=== PATIENT | female | born 1995 | race Caucasian/White ===

== ENCOUNTER 2023-09-22 09:29 | Day surgery (SDC) | payer OTHER, SELFPAY ==
[2023-09-20 07:42] VITALS: BMI 25.0
--- NOTE | 2023-09-22 10:50 | P.HP_ITS ---
History of Present Illness History of Present Illness Date Patient Seen: 09/22/23 Time Patient Seen: 11:30 Chief complaint: SDC Narrative: 34-year-old female last seen in clinic 08/02/2023 with known left nasal airway obstruction 2 to 3+ septal deviation, incompletely managed with medical therapy, presents for septoplasty and turbinate reduction as an outpatient. No interval health changes since last seen, no recent cough cold or fever. [facility] Medical History Nasal turbinate hypertrophy Anemia Migraines Deviated nasal septum Surgical History No history of previous surgery Social History Smoking Status: Never smoker Meds Home Medications and Allergies Home Medications Medication Instructions Recorded Confirmed Type No Known Home Medications 09/20/23 09/20/23 History Allergies Allergy/AdvReac Type Severity Reaction Status Date / Time No Known Drug Allergies Allergy Verified 09/20/23 07:50 Review of Systems Review of Systems Narrative: Negative except as listed in the HPI Exam Narrative Exam Narrative: Well-developed well-nourished, heart regular rate and rhythm without murmur, lungs clear to auscultation bilaterally Assessment & Plan Assessment & Plan narrative: Assessment: Nasal airway obstruction, septal deviation, inferior turbinate hypertrophy Plan: Following discussion of the material risks benefits complications and alternatives, the patient elected to proceed.
--- NOTE | 2023-09-22 10:50 | PM.PREOP ---
Pre-operative Note Interval Note History & Physical reviewed/Exam performed by Physician: Yes Changes to H&P: No
--- NOTE | 2023-09-22 10:53 | PM.OP.1 ---
Operative Date/Time/Diagnoses Date of procedure: 09/22/23 Time of procedure: 13:05 Pre-op diagnosis: Nasal airway obstruction, septal deviation, inferior turbinate hypertrophy Procedure & Clinicians Procedure: 1. Septoplasty 2. Bilateral inferior turbinate reduction via intramural cautery Same procedure as scheduled: Yes Indications: 28 Year old with the above diagnoses incompletely managed with medical therapy presents for the above procedure. Following discussion of the material risks benefits complications and alternatives, the patient elected to proceed. Surgeon: Charan López Click Yes if Unassisted: Yes Anesthesia Type: General and Local Operative Notes Findings: 2 to 3+ left anterior primarily superior septal deviation, [id number]-left inferior turbinate hypertrophy. Small LEFT high mid to posterior flap perf, RIGHT intact. Estimated Blood Loss (mL): 20 Procedure in detail: Following identification and confirmation of consent as well as preoperative Afrin nasal spray, the patient was brought to the operating room suite and placed in the supine position. General endotracheal anesthesia was administered. I infiltrated the septum widely bilaterally with 1% lidocaine 1 100,000 epinephrine followed by temporary packing with cotton with Afrin and 4% lidocaine. Following sterile prep and drape, the packing was removed and I performed a right marium-transfixion incision, elevated the right mucoperichondrial and mucoperiosteal flap. I disarticulated near the bony/cartilaginous junction and elevated the left mucoperiosteal flap. Deviated portions of the perpendicular plate of the ethmoid and vomer were resected. The residual quadrilateral cartilage was further straightened by trimming it inferiorly as well as reducing the maxillary crest. A 2 mm strip of cartilage paralleling the residual 1 cm dorsal and caudal strut was resected to further straighten the quadrilateral cartilage. The hemitransfixion incision was closed with interrupted 5 0 chromic followed by a running 4 0 plain gut mattress suture to reapproximate the septal flaps. At case completion, 20/1000th of an inch silastic splints were placed bilaterally, sutured anteriorly with a single 4 0 nylon. The head of each inferior turbinate had been previously infiltrated with additional local anesthetic and a 25 gauge spinal needle was used to impale the length of the turbinate, with cautery on a setting of 15 activated on slow withdrawal over 2 passes. The turbinates were then outfractured. The procedure completed, sponge and needle counts were correct and the patient was extubated in the operating room and taken to recovery room in stable condition without known complication. Complications: none Post-operative Condition: stable Disposition: same day surgery Plan for aftercare: Nasal saline every hour while awake, begin irrigations t.i.d. tomorrow if desired. Polysporin to the nostrils at all times, Tylenol alternating with Advil for pain control, oxycodone for breakthrough pain. Elevate head of bed, no nose blowing, no straining for 2 weeks. Ice directly under the nose on the upper lip has tolerated 24-48 hours at a minimum. Follow-up in 1 week for nasal splint removal.
[2023-09-22] MEDS: SCOPOLAMINE 1 PATCH TOP (11:09)
[2023-09-22] MEDS: LACTATED RINGERS 1,000 ML 42 ML IV (11:10)
[2023-09-22] MEDS: ACETAMINOPHEN 325 MG TABLET 975 MG PO (11:10)
[2023-09-22] MEDS: OXYMETAZOLINE NASAL SPRAY 30 ML 2 SPRAYS NASAL (11:11)
[2023-09-22 11:29] VITALS: BMI 25.0
[2023-09-22 11:33] VITALS: BP 109/71; PULSE 65; RESP 18; TEMP 36.8; O2SAT 100
[2023-09-22] MEDS: LIDOCAINE 1% W/EPI 20 ML INJ (12:10)
[2023-09-22] MEDS: LIDOCAINE 4% SOLN 50 ML 20 ML TOP (12:10)
--- NOTE | 2023-09-22 12:19 | SUR.OPER ---
Supine on padded OR bed, head on pillow, arms padded and tucked at sides, legs uncrossed, safety belt at thigh, tape over blanket over lower legs .
[2023-09-22] MEDS: BACITRACIN OINT 0.9 GM PCKT 1 APPLIC TOP (12:23)
[2023-09-22 13:17] VITALS: BP 121/66; PULSE 64; RESP 16; TEMP 36.2; O2SAT 98
[2023-09-22 13:22] VITALS: BP 130/73; PULSE 88; RESP 16; O2SAT 98
[2023-09-22 13:27] VITALS: BP 122/72; PULSE 60; RESP 16; O2SAT 98
[2023-09-22 13:32] VITALS: BP 125/75; PULSE 66; RESP 16; TEMP 36.2; O2SAT 98
[2023-09-22] MEDS: OXYCODONE IR 5 MG TABLET PO (13:33)
[2023-09-22] MEDS: ONDANSETRON 4 MG/2 ML INJ IV (13:33)
[2023-09-22 13:50] VITALS: BP 123/77; PULSE 78; RESP 16; TEMP 36.8; O2SAT 98
== END 2023-09-22 14:12 | disposition home or self-care (01) ==
PROVIDERS: Referring Provider Otolaryngology; Visit Provider Otolaryngology
PROC: (CPT 30520; principal; 2023-09-22 11:00)
DX: J34.2 Deviated nasal septum (principal); J34.3 Hypertrophy of nasal turbinates; J34.89 Other specified disorders of nose and nasal sinuses
CPT/HCPCS: 30520; 30802; 81025; J1100; J1885; J2250; J2405; J2704; J3010

== ENCOUNTER 2025-06-07 12:03 | Day surgery (SDC) | payer OTHER, SELFPAY ==
--- NOTE | 2025-06-07 | PATH_ITS ---
[facility] Accession Number: [id number] No. of containers..05 Tissue . 01 Material submitted: . PART A: esophagus - ESOPHAGUS, MID PART B: small bowel - ILEUM, TERMINAL PART C: colon - COLON, RIGHT PART D: colon - COLON,TRANSVERSE PART E: colon - COLON, LEFT . 01 Diagnosis: A. MID ESOPHAGUS, BIOPSY: Squamous mucosa with ulcer, consistent with severe reflux esophagitis. Negative for fungal organisms on PAS stain. Negative for cytomegalovirus or herpes simplex virus inclusions by immunohistochemistry. Negative for dysplasia or malignancy. . B. TERMINAL ILEUM, BIOPSY: Ileal mucosa with no diagnsotic abnormality. Negative for active inflammation, granulomas, dysplasia, or malignancy. . C. RIGHT COLON, BIOPSY: Colonic mucosa with no diagnostic abnormality. Negative for active, chronic, and microscopic colitis. Negative for dysplasia and malignancy. . D. TRANSVERSE COLON, BIOPSY: Colonic mucosa with no diagnostic abnormality. Negative for active, chronic, and microscopic colitis. Negative for dysplasia and malignancy. . E. LEFT COLON, BIOPSY: Colonic mucosa with no diagnostic abnormality. Negative for active, chronic, and microscopic colitis. Negative for dysplasia and malignancy. [facility] 06/18/2025 1622 Local . 01 Electronically signed: . Ramiro Méndez MD, PhD, Pathologist NPI- [id number] . 01 Gross description: . A. Received in formalin with two identifiers and mid esophagus biopsies, are multiple bush soft tissue fragments. The eight largest fragments range from 0.2 to 0.4 cm in greatest dimension, submitted into A1. The remaining minute fragments aggregate to 0.3 x 0.3 x 0.1 cm, are filtered and submitted in A2. B. Received in formalin with two identifiers and terminal ileum biopsies, are three bush soft tissue fragments ranging from 0.1 to 0.4 cm in greatest dimension, entirely submitted in B1. C. Received in formalin with two identifiers and right colon biopsies, are four bush soft tissue fragments ranging from 0.2 to 0.3 cm in greatest dimension, entirely submitted in C1. D. Received in formalin with two identifiers and transverse colon biopsies, are three bush soft tissue fragments measuring 0.3 to 0.5 cm in greatest dimension, entirely submitted in D1. E. Received in formalin with two identifiers and left colon biopsies, are three bush soft tissue fragments ranging from 0.2 to 0.5 cm in greatest dimension, entirely submitted in E1. ([id number]) /MRV 06/14/2025 1817 Local . 01 Microscopic: . A. A PAS stain is negative for fungal organisms. Immunohistochemical stains are negative for cytomegalovirus and herpes simplex virus inclusions, respectively. All control stains show appropriate reactivity. . * This test was developed and the performance characteristics were validated by [facility]. It has not been cleared or approved by the U.S. Food and Drug Administration. . 01 Pathologist provided ICD-10: R19.8, K22.10 . 01 CPT . 586158, 887253, 773888, 597271, 406817, 839049, T57006, [id number] Specimen Comment: A courtesy copy of this report has been sent to [phone] Performed at: [address] [id number] MD Dominik Isabel MD Phone: [phone]
[2025-06-07 12:26] VITALS: BP 115/78; PULSE 65; RESP 16; TEMP 36.3; O2SAT 98
[2025-06-07] MEDS: LACTATED RINGERS 1,000 ML 42 ML IV (12:34)
--- NOTE | 2025-06-07 12:52 | PM.PREOP ---
Pre-operative Note COVID-19 COVID-19 status: Not tested Interval Note History & Physical reviewed/Exam performed by Physician: Yes Changes to H&P: No ASA Class (for procedural sedation): II
[2025-06-07 13:32] VITALS: BP 113/58; PULSE 62; RESP 17; TEMP 36.7; O2SAT 99
--- NOTE | 2025-06-07 13:32 | PM.OP.EC ---
Operative Date/Time/Diagnoses Date of procedure: 06/07/25 Time of procedure: 13:32 Pre-op diagnosis: Chronic constipation Post-op diagnosis: same Procedure & Clinicians Study performed: Esophagogastroduodenoscopy and colonoscopy Same procedure(s) as scheduled: Yes Surgeon: Adán Martin Anesthesia Type: MAC +/- Procedure Notes Procedure in detail: Surgeon: Adán Martin MD Anesthesia: Maryanne Pederson [employer] Procedure in detail: A timeout was performed. A bite blocked was placed and monitors were attached to the patient. The patient was positioned in the left lateral decubitus position. Sedation was administered. Once the patient was sedated the endoscope was inserted through the bite block and passed through the esophagus and stomach and into the duodenum. The duodenum appeared normal. We then withdrew the scope into the stomach. No abnormalities were seen in the stomach. The endoscope was retroflexed and no hiatal hernia was noted. The endoscope was straightned and withdrawn into the esophagus. There were some small ulcerations in the mid esophagus along with some mucosal plaque-like lesions. Multiple random biopsies were taken with cold forceps from the mid esophagus. EGD findings: Small ulcerations and plaque-like lesions in the mid esophagus Next we repositioned the patient for a colonoscopy. A digital rectal exam was performed and was normal. The colonoscope was inserted and advanced to the cecum. The appendiceal orifice was identified and photographed. The scope was slowly withdrawn over greater than 6 minutes. The terminal ileum was intubated and no gross abnormalities were noted. Random biopsies were taken from the terminal ileum mucosa with cold forceps. The remainder of the colon appeared grossly normal. Random biopsies were taken from the right colon, transverse colon and left colon with cold forceps. The scope was retroflexed in the rectum and internal hemorrhoids were noted. Colonoscopy findings: Internal hemorrhoids Total procedural EBL: 5 mL Scope withdrawal time: 9 minutes Sedation minutes: 27 minutes Post-procedure Disposition: PACU
[2025-06-07 13:35] VITALS: BP 116/57; PULSE 61; RESP 17; O2SAT 100
[2025-06-07 13:40] VITALS: BP 113/63; PULSE 70; RESP 20; O2SAT 100
[2025-06-07 13:43] VITALS: BP 115/63; PULSE 70; RESP 20; O2SAT 100
== END 2025-06-07 14:00 | disposition home or self-care (01) ==
PROVIDERS: Referring Provider Surgery; Visit Provider Surgery
PROC: 0DJ08ZZ Inspection of Upper Intestinal Tract, Via Natural or Artificial Opening Endoscopic (ICD-10-PCS; CPT 45380; principal; 2025-06-07 13:15)
PROC: 0DJD8ZZ Inspection of Lower Intestinal Tract, Via Natural or Artificial Opening Endoscopic (ICD-10-PCS; CPT 45378; 2025-06-07 13:15)
DX: K59.09 Other constipation (principal); K64.8 Other hemorrhoids; K22.10 Ulcer of esophagus without bleeding
CPT/HCPCS: 45380; 43239; J2704